=== PATIENT | female | born 2000 | race African-American/Black ===

== ENCOUNTER 2024-11-25 13:09 | Emergency (ER) | payer MEDICAID ==
[2024-11-25 15:15] LABS: INR-International Normal Ratio 1.0; Prothrombin Time 13.6 sec (12.0-14.7)
[2024-11-25 15:16] LABS: PTT 27.5 sec (22.9-36.1)
[2024-11-25 15:19] LABS: ALT (SGPT) 15 U/L (Less than 34); AST (SGOT) 21 U/L (11-34); Albumin 4.5 g/dL (3.1-4.5); Alkaline Phosphatase 27 U/L (40-110); Anion Gap 10 mmol/L (10-20); BUN (Urea Nitrogen) 11 mg/dL (7.0-18.7); Bilirubin, Total 0.5 mg/dL (0.3-1.2); Calc. Creatinine Clearance 0 mL/min (70-130); Calcium 9.0 mg/dL (7.8-10.44); Carbon Dioxide 25 mmol/L (22-29); Chloride 106 mmol/L (98-107); Globulin 3.1 g/dL (2.4-3.5); Glucose 86 mg/dL (70-105); Potassium 3.4 mmol/L (3.5-5.1); Sodium 138 mmol/L (136-145)
[2024-11-25 16:56] LABS: Magnesium 1.9 mg/dL (1.6-2.6)
[2024-11-25 17:09] LABS: #Basophils Less than 0.03 10x3/uL (0.0-0.2); #Eosinophils 0.04 10x3/uL (0.0-0.7); #Monocytes 0.30 10x3/uL (0.11-0.59); #Neutrophils 3.47 10x3/uL (1.40-6.50); %Basophils 0.4 % (0.0-1.0); %Eosinophils 0.8 % (0.0-10.0); %Lymphocytes 25.0 % (21.0-51.0); %Monocytes 5.9 % (0.0-10.0); %Neutrophils 67.7 % (42.0-75.0); Hematocrit 35.8 % (36.0-47.0); Hemoglobin 11.7 g/dL (12.0-16.0); Mean Corpuscular Hemoglobin 28.1 pg (27.0-31.0); Mean Corpuscular Volume 86.1 fL (78.0-98.0); Platelet Count 3 10x3/uL (130-400); Red Blood Cell (RBC) Count 4.16 mill/uL (4.20-5.40); White Blood Cell (WBC) Count 5.12 10x3/uL (4.8-10.8)
[2024-11-25 17:34] LABS: Burr Cells SLIGHT = 2-5 cells HPF (0-1); Platelet Adequacy Comment Significant Decrease
[2024-11-25] MEDS ORDERED: Dexamethasone 10 MG/ML VIAL ONE (18:13)
== END 2024-11-25 19:04 | disposition home or self-care (01) ==
LOC: ERS 13:09
DX: D69.6 Thrombocytopenia, unspecified (principal)
CPT/HCPCS: 80053; 83735; 85025; 85060; 85610; 85730; 93970; J1100